=== PATIENT | female | born 1995 | race African-American/Black ===

== ENCOUNTER 2018-01-23 09:56 | Emergency (ER) | payer OTHER ==
[~2018-01-23] VITALS: Ht 152.4 cm; Wt 115.2 kg
[2018-01-23 09:59] VITALS: TEMP 36.7; Ht 152.4 cm; Wt 115.2 kg
--- NOTE | 2018-01-23 10:18 | EMERGENCY ROOM VISIT NOTE ---
History Report prepared by Biancaibbjorn: Hillary Porter Under the Supervision of: Dr. Harpal Naqvi M.D. First contact with patient: 10:04 Chief Complaint: ABDOMINAL PAIN Stated Complaint: STOMACH ACHE, DIARRHEA, DARK STOOL History of Present Illness The patient is a 22 year old white female with a past medical history of osteogenesis imperfecta who presents to the ED with a cc of persistent right sided abdominal pain beginning yesterday. She rates her discomfort as a 6/10 in severity. Movement worsens her discomfort. Ibuprofen has provided minimal relief. Positive diarrhea, hematochezia. Negative nausea, vomiting, urinary symptoms, recent trauma or injury. She states she takes no daily medications and has never undergone surgery. She is currently on her menstrual period and it has been normal. Source of History: patient Onset: yesterday Position: abdomen Symptom Intensity: 6/10 Timing: other (persistent) Modifying Factors (Worsening): movement Modifying Factors (Relieving): ibuprofen Associated Symptoms: + hematochezia, + diarrhea, No nausea, No vomiting, No urinary symptoms Review of Systems See HPI for pertinent positives and negatives. A total of ten systems were reviewed and were otherwise negative. Past Medical & Surgical Medical Problems: (1) Osteogenesis Imperfecta Family History Cancer Kidney disease Kidney stones Social History Smoking Status: Never Smoker Alcohol Use: occasionally Drug Use: none Marital Status: single Housing Status: lives with roommate Occupation Status: [employer] Current/Historical Medications Scheduled Ibuprofen (Advil), 400 MG PO UD Allergies Coded Allergies: No Known Allergies (Verified , 01/23/18) Physical Exam Vital Signs Date Time Temp Pulse Resp B/P (MAP) Pulse Ox O2 Delivery O2 Flow Rate FiO2 01/23/18 13:27 64 18 141/110 98 01/23/18 11:30 84 18 121/89 99 Room Air 01/23/18 09:59 36.7 97 20 171/93 99 Room Air Physical Exam GENERAL: Awake, alert, obese-appearing, NAD HENT: Normocephalic, atraumatic. EYES: Normal conjunctiva. Sclera non-icteric. PERRL. No anisocoria. NECK: Supple. No nuchal rigidity. FROM. RESPIRATORY: CTAB, no rhonchi, wheezing, crackles CARDIAC: RRR, no MRG ABDOMEN: Soft, no flank pain, positive RLQ tenderness, negative RUQ tenderness, positive obturator's, positive psoas, BS+ MSK: No chest wall TTP, no LE edema, no CVA TTP NEURO: GCS 15, CN 2-12 intact, moves all 4s on command SKIN: No rash or jaundice noted. Medical Decision & Procedures ER Provider Diagnostic Interpretation: Radiology results as stated below per my review and radiologist interpretation: ABD/PELVIS NO IV OR ORAL CONT CLINICAL HISTORY: 22 years-old Female presenting with acute abdominal pain, RLQ r/o appy. TECHNIQUE: Multidetector CT of the abdomen and pelvis was performed without the use of intravenous contrast. IV contrast: None. A dose lowering technique was used consistent with the principles of ALARA (as low as reasonably achievable). COMPARISON: None. CT DOSE (mGy.cm): The estimated cumulative dose is 1689.97 mGy.cm. FINDINGS: [employer] topogram: Unremarkable. Lung bases: Lungs and pleural spaces clear. Normal heart size. No pericardial or pleural effusion. Liver: Normal morphology. Density consistent with hepatic steatosis. Biliary: No gross biliary ductal dilatation allowing for noncontrast technique. Normal gallbladder. Pancreas: Normal noncontrast appearance. Spleen: Normal noncontrast appearance. Adrenal glands: Normal noncontrast appearance. Kidneys and ureters: Normal noncontrast appearance. No nephrolithiasis. No hydronephrosis. Normal ureters. Bladder: Normal. Pelvic organs: Normal noncontrast appearance. Bowel: Normal appendix. No bowel obstruction. Peritoneal cavity: No free fluid or intraperitoneal gas. Lymph nodes: No gross lymphadenopathy allowing for noncontrast technique. Vasculature: Normal noncontrast appearance. Abdominal wall: Normal. Musculoskeletal: Normal. IMPRESSION: 1. No acute intra-abdominal pathology. Specifically, no appendicitis. 2. Hepatic steatosis. Correlate with liver function tests to exclude steatohepatitis as a cause for abdominal pain. Electronically signed by: Santhosh Morales M.D. 01/23/2018 11:19 AM Laboratory Results 01/23/18 10:55 Red Blood Count 4.99, Mean Corpuscular Volume 81.4, Mean Corpuscular Hemoglobin 28.3, Mean Corpuscular Hemoglobin Concent 34.7, Mean Platelet Volume 9.9, Neutrophils (%) (Auto) 64.3, Lymphocytes (%) (Auto) 27.8, Monocytes (%) (Auto) 4.5, Eosinophils (%) (Auto) 3.0, Basophils (%) (Auto) 0.3, Neutrophils # (Auto) 4.56, Lymphocytes # (Auto) 1.97, Monocytes # (Auto) 0.32, Eosinophils # (Auto) 0.21, Basophils # (Auto) 0.02 01/23/18 10:55 Test 01/23/18 10:55 01/23/18 11:23 White Blood Count 7.09 K/uL (4.8-10.8) Red Blood Count 4.99 M/uL (4.2-5.4) Hemoglobin 14.1 g/dL (12.0-16.0) Hematocrit 40.6 % (37-47) Mean Corpuscular Volume 81.4 fL (80-100) Mean Corpuscular Hemoglobin 28.3 pg (25-34) Mean Corpuscular Hemoglobin Concent 34.7 g/dl (32-36) Platelet Count 292 K/uL (130-400) Mean Platelet Volume 9.9 fL (7.4-10.4) Neutrophils (%) (Auto) 64.3 % Lymphocytes (%) (Auto) 27.8 % Monocytes (%) (Auto) 4.5 % Eosinophils (%) (Auto) 3.0 % Basophils (%) (Auto) 0.3 % Neutrophils # (Auto) 4.56 K/uL (1.4-6.5) Lymphocytes # (Auto) 1.97 K/uL (1.2-3.4) Monocytes # (Auto) 0.32 K/uL (0.11-0.59) Eosinophils # (Auto) 0.21 K/uL (0-0.5) Basophils # (Auto) 0.02 K/uL (0-0.2) RDW Standard Deviation 39.6 fL (36.4-46.3) RDW Coefficient of Variation 13.3 % (11.5-14.5) Immature Granulocyte % (Auto) 0.1 % Immature Granulocyte # (Auto) 0.01 K/uL (0.00-0.02) Anion Gap 5.0 mmol/L (3-11) Est Creatinine Clear Calc Drug Dose 148.1 ml/min Estimated GFR () 143.2 Estimated GFR (Non- 123.6 BUN/Creatinine Ratio 14.5 (10-20) Calcium Level 8.8 mg/dl (8.5-10.1) Total Bilirubin 0.4 mg/dl (0.2-1) Direct Bilirubin mg/dl (0-0.2) Aspartate Amino Transf (AST/SGOT) 26 U/L (15-37) Alanine Aminotransferase (ALT/SGPT) 41 U/L (12-78) Alkaline Phosphatase 73 U/L (45-117) Total Protein 8.5 gm/dl (6.4-8.2) Albumin 3.8 gm/dl (3.4-5.0) Lipase 146 U/L (73-393) Chemistry Specimen Hemolysis Urine Color YELLOW Urine Appearance CLEAR (CLEAR) Urine pH 6.0 (4.5-7.5) Urine Specific [place] 1.010 (1.000-1.030) Urine Protein NEG (NEG) Urine Glucose (UA) NEG (NEG) Urine Ketones NEG (NEG) Urine Occult Blood 3+ (NEG) Urine Nitrite NEG (NEG) Urine Bilirubin NEG (NEG) Urine Urobilinogen NEG (NEG) Urine Leukocyte Esterase NEG (NEG) Urine WBC (Auto) 1-5 /hpf (0-5) Urine RBC (Auto) 0-4 /hpf (0-4) Urine Hyaline Casts (Auto) 0 /lpf (0-5) Urine Epithelial Cells (Auto) 20-30 /lpf (0-5) Urine Bacteria (Auto) 1+ (NEG) Urine Test NEG (NEG) Laboratory results reviewed by me Medications Administered Medications (Trade) Dose Ordered Sig/Obi Route Start Time Stop Time Status Last Admin Dose Admin Sodium Chloride 1,000 ml @ 999 mls/hr Q1H1M STAT IV 01/23/18 10:20 01/23/18 11:20 DC 01/23/18 11:24 999 MLS/HR Ondansetron HCl (Zofran Inj) 4 mg NOW STAT IV 01/23/18 10:20 01/23/18 10:22 DC 01/23/18 11:24 4 MG Morphine Sulfate (MoRPHine SULFATE INJ) 4 mg NOW STAT IV 01/23/18 10:20 01/23/18 10:22 DC 01/23/18 11:25 4 MG ED Course 1014: The patient was evaluated in room B4B. A complete history and physical exam was performed. 1130: I reevaluated the patient. She is feeling well. I informed her of her CT scan findings and she verbalized complete understanding and agreement. 1240: I reevaluated the patient. She is feeling well and is ready to go home. I discussed her results and discharge instructions and she verbalized complete understanding and agreement. Medical Decision The patient is a 22 year old white female with a past medical history of osteogenesis imperfecta who presents to the ED with a cc of persistent right sided abdominal pain beginning yesterday. Triage Nursing notes reviewed. The patient's presentation and history were concerning for abdominal pain. Differential diagnosis: Etiologies such as appendicitis, diverticulitis, PUD, biliary pathology, UTI, pancreatitis, obstruction, mesenteric ischemia, aortic pathology, infections, inflammatory bowel disease, renal colic, as well as others were entertained. Nursing notes reviewed. Ancillary studies and prior records reviewed. Patient was seen and evaluated the bedside. Patient does have a history of brittle bone disease. Patient denies any recent falls. The patient was complained of some right-sided lower abdominal discomfort. The patient is currently on her menstrual period. Patient had some lower abdominal discomfort. Patient denies any prior history of issues with ovaries or uterus. Patient did have blood work completed and did have a CT Noncon completed for further evaluation. The patient was also given medications for pain control. Patient is Noncon CT was fairly unremarkable. The appendix is well-visualized and there is no appendicitis. No evidence of nephro or ureterolithiasis. The uterus and ovaries were deemed unremarkable. No comment as to any broken bones or fractures given the patient's prior history of osteogenesis imperfecta. I did reassess the patient is states that she was feeling much improved. I did convey that her blood work is fairly unremarkable. The patient had a normal white blood cell count was not anemic had normal kidney function and no changes in LFTs or lipase. Her urinalysis was likely contaminated from her menstrual period. Patient was told a follow-up with her primary care physician and to return if she had any worsening changes. She was told to consider Tylenol Motrin as well as moist heat as well as some gentle stretching. Patient was given strict follow-up, discharge, and return precautions. All questions were answered. Patient was deemed suitable for outpatient follow-up at this time. Patient agreed with the plan of care and was safely discharged home. Medication Reconcilliation Current Medication List: was personally reviewed by me Blood Pressure Screening Patient's blood pressure: Elevated blood pressure Blood pressure disposition: Elevated BP felt to be situational Impression Primary Impression: Abdominal pain Scribe Attestation The scribe's documentation has been prepared under my direction and personally reviewed by me in its entirety. I confirm that the note above accurately reflects all work, treatment, procedures, and medical decision making performed by me. Departure Information Dispostion Home / Self-Care Referrals RV. Edwards MD (PCP) Patient Instructions Abdominal Pain, My [facility] Additional Instructions Please return to the emergency department if you have worsening or recurrent symptoms not amenable to at-home treatment. Please call for a follow-up appointment with her primary care physician. Please take your medications as prescribed. If you have other concerns and/or complaints please feel free to also call your primary care physician's office or return the ED for further evaluation, management, and treatment. You received narcotic or benzodiazepene medication while in the emergency room today. This is an addictive medication that may cause drowziness as well as constipation. Do not drive, operate heavy machinery, or drink alcohol under the influence of this medication. You may take 800 mg Ibuprofen every 6 hours as needed for pain/fever with food unless told by your physician not to take NSAIDs. You may take tylenol 1000 mg every 6 hours as needed for pain/fever unless told by your physician to not take it or have liver problems. You may take motrin and tylenol separately or at the same time. Take your medications as prescribed. You have been examined and treated today on an emergency basis only. This is not a substitute for, or an effort to provide, complete comprehensive medical care. It is impossible to recognize and treat all injuries or illnesses in a single emergency department visit. It is therefore important that you follow up closely with [facility], your PCP, and/or your specialist(s). Call as soon as possible for an appointment. Thank you for your time and consideration. I look forward to speaking with you again soon. Please don't hesitate to call us if you have any questions. Problem Qualifiers Primary Impression: Abdominal pain Abdominal location: unspecified location Qualified Codes: R10.9 - Unspecified abdominal pain
[2018-01-23] MEDS ORDERED: MoRPHine SULFATE 4 MG/ML 1 ML CARP\\VIAL IV STA (10:20)
[2018-01-23] MEDS ORDERED: SODIUM CHLORIDE 0.9% 1000ML 1,000 ML IV STA (10:20)
[2018-01-23] MEDS ORDERED: ONDANSETRON INJ 2 MG/ML 2 ML VIAL IV STA (10:20)
[2018-01-23 11:03] LABS: BASO % 0.3 %; BASO ABS # 0.02 K/uL (0-0.2); EOS ABS # 0.21 K/uL (0-0.5); HEMATOCRIT 40.6 % (37-47); HEMOGLOBIN 14.1 g/dL (12.0-16.0); IG# 0.01 K/uL (0.00-0.02); LYMPH % 27.8 %; LYMPH ABS # 1.97 K/uL (1.2-3.4); MEAN CELL VOLUME 81.4 fL (80-100); MEAN CORPUSCULAR HEMOGLOBIN 28.3 pg (25-34); MEAN CORPUSCULAR HGB CONC 34.7 g/dl (32-36); MEAN PLATELET VOLUME 9.9 fL (7.4-10.4); MONO % 4.5 %; MONO ABS # 0.32 K/uL (0.11-0.59); NEUT % 64.3 %; NEUT ABS # 4.56 K/uL (1.4-6.5); PLATELET COUNT 292 K/uL (130-400); RED CELL DISTRIBUTION WIDTH CV 13.3 % (11.5-14.5); RED CELL DISTRIBUTION WIDTH SD 39.6 fL (36.4-46.3); WHITE BLOOD COUNT 7.09 K/uL (4.8-10.8)
--- NOTE | 2018-01-23 11:20 | DIAGNOSTIC IMAGING REPORT ---
ABD/PELVIS NO IV OR ORAL CONT CLINICAL HISTORY: 22 years-old Female presenting with acute abdominal pain, RLQ r/o appy. TECHNIQUE: Multidetector CT of the abdomen and pelvis was performed without the use of intravenous contrast. IV contrast: None. A dose lowering technique was used consistent with the principles of ALARA (as low as reasonably achievable). COMPARISON: None. CT DOSE (mGy.cm): The estimated cumulative dose is 1689.97 mGy.cm. FINDINGS: [employer] topogram: Unremarkable. Lung bases: Lungs and pleural spaces clear. Normal heart size. No pericardial or pleural effusion. Liver: Normal morphology. Density consistent with hepatic steatosis. Biliary: No gross biliary ductal dilatation allowing for noncontrast technique. Normal gallbladder. Pancreas: Normal noncontrast appearance. Spleen: Normal noncontrast appearance. Adrenal glands: Normal noncontrast appearance. Kidneys and ureters: Normal noncontrast appearance. No nephrolithiasis. No hydronephrosis. Normal ureters. Bladder: Normal. Pelvic organs: Normal noncontrast appearance. Bowel: Normal appendix. No bowel obstruction. Peritoneal cavity: No free fluid or intraperitoneal gas. Lymph nodes: No gross lymphadenopathy allowing for noncontrast technique. Vasculature: Normal noncontrast appearance. Abdominal wall: Normal. Musculoskeletal: Normal. IMPRESSION: 1. No acute intra-abdominal pathology. Specifically, no appendicitis. 2. Hepatic steatosis. Correlate with liver function tests to exclude steatohepatitis as a cause for abdominal pain. Electronically signed by: Santhosh Morales M.D. 01/23/2018 11:19 AM Dictated Date/Time: 01/23/2018 11:14 AM
[2018-01-23 11:29] LABS: ALBUMIN 3.8 gm/dl (3.4-5.0); CALCIUM 8.8 mg/dl (8.5-10.1); POTASSIUM 3.9 mmol/L (3.5-5.1); TOTAL PROTEIN 8.5 gm/dl (6.4-8.2)
[2018-01-23 11:31] LABS: CREATININE 0.69 mg/dl (0.60-1.20)
[2018-01-23] MEDS ORDERED: IBUP-1050 PO (11:53)
[2018-01-23 13:27] VITALS: BP 141/110; PULSE 64; O2SAT 98
--- NOTE | 2018-01-25 12:12 | Pharmacy Progress Note ---
ED Pharmacist Culture FollowUp Date of Service: January 25, 2018. Patient was seen in ER 2 days ago w/ c/o abdominal pain, diarrhea and dark stools. Urine cx today is growing > 100,000CFU/mL e coli. Corresponding UA not remarkable for UTI, but likely contaminated given number of epis: clear, negative nitrite, negative LE, no pyuria (1-5WBC), 1+ bacteria, 20-[address] abd/pelvis read as no acute intraabd pathology, normal bladder, normal kidneys/ureters Patient denied urinary symptoms No fever or chills noted. Normal WBC count. Likely asymptomatic bacteruria vs contaminated sample given UA. Reviewed cx with Dr Nicole. He would like phone f/u with patient. If pt still having the above symptoms he would like patient to be treated for UTI. I attempted to contact the patient w/ ph # provided: [phone]. There was no answer but I did leave a message requesting a call back.
== END 2018-01-23 13:29 | disposition home or self-care (01) ==
LOC: C.EDB 09:57
DX: R10.9 Unspecified abdominal pain (principal); Q78.0 Osteogenesis imperfecta; Z80.9 Family history of malignant neoplasm, unspecified; Z84.1 Family history of disorders of kidney and ureter

== ENCOUNTER → 2018-04-10 | Outpatient (CLI) | payer OTHER ==
[~2018-04-10] MED LIST: IBUP-1050 PO
== END | disposition home or self-care (01) ==
LOC: C.LAB1850 11:19
PROVIDERS: ATTEND Nurse Practitioner Family
DX: Z11.3 Encounter for screening for infections with a predominantly sexual mode of transmission (principal)